=== PATIENT | female | born 1970 | race African-American/Black ===

== ENCOUNTER 2024-09-05 13:51 | Outpatient (CLI) | payer MEDICARE, MEDICAID, SELFPAY ==
--- NOTE | ~2024-09-05 | MM_ITS ---
EXAMINATION: MM screening francesco BI w heladio HISTORY: Screening TECHNIQUE: Craniocaudal and mediolateral oblique 3-D tomosynthesis images were obtained and synthetic 2-D images were generated. CAD analysis was submitted and interpreted. COMPARISON: No prior mammogram is available for comparison at this institution. BREAST PARENCHYMAL COMPOSITION: Not dense: There are scattered areas of fibroglandular density. FINDINGS: There are scattered small low-density masses in the left breast. There is a small intramamm andreas lymph node in the upper outer quadrant of the right breast. There are no suspicious calcification s or architectural distortion. IMPRESSION: 1. Small scattered low-density masses of the left breast. 2. Comparison to previous outside mammograms recommended to assess stability. BI-RADS Category 0: Incomplete: Needs additional imaging evaluation. Reviewed, dictated and finalized at location A.
--- OUTSIDE RECORDS SUMMARY | 2024-09-05 13:57 | XMS_ITS | Clinical Summary ---
Author Organization [facility] Address [address] [place] [address] Care Team Providers Care Marine Electronics Technician Name Role Phone Unavailable Primary Care Provider Unavailabl e Source Comments [facility],non-owned Affiliates and Associated Physician Practices is amultiple site organization consisting of ambulatory clinics and hospital sitesin [place], [place], [place] and [place]. This disclosure is being madepursuant to the Care Everywhere program and may not contain all information available regarding this patient. Last updated 18.[facility] Allergies No known active allergies Medications * Be aware that medications may not be up to date on this document. Alwaysverify current medications with the patient. 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 Gender Identity Not on file Sexual Orientation Not on file Plan of Treatment Health Maintenance Due Date Last Done Comments COLOGUARD (AGES 45-75) - COL ON CA SCREENING 1971 COLON MONITORING 1971 COLONOSCOPY - COLON CA SCREENING 1971 CT COLONOGRAPHY - COLON CA SCREENING 1971 Colorectal Cancer Screening 1971 FIT - COLON CA SCREENING 1971 FLEX SIG - COLON CA SCREENING 1971 LIPID TESTING 1971 MAMMOGRAM 1971 PAP SMEAR 1971 HIV SCREENING 1986 HEPATITIS C SCREENING 04/17/1989 DTAP/TDAP/TD VACCINES (1 - Tdap) 1990 HEPATITIS B VACCINE (1 of 3 - 19+ 3-dose series) 1990 PNEUMOCOCCAL VACCINE 50+ (1 of 1 - PCV) 2021 ZOSTER VACCINE (1 of 2) 2021 COVID-19 VACCINE (3 - 2023-2 5 season) 2023 06/22/2020, 05/25/2020 DEPRESSION SCREENING 04/24/2024 INFLUENZA VACCINE (Season Ended) 2024 01/10/2019, 07/06/2017 HIB VACCINE Aged Out No longer eligi ble based on patient's age to complete this topic HPV VACCINE Aged Out No longer eligi ble based on patient's age to complete this topic MENINGOCOCCAL (Group B) VACCINE SHARED DECISION-MAKING Aged Out No longer eligible based on patient's age to complete this topic MENINGOCOCCAL GROUPS A/C/Y/W VACCINE Aged Out No longer eligible b ased on patient's age to complete this topic
--- OUTSIDE RECORDS SUMMARY | 2024-09-05 13:57 | XMS_ITS | Referral Summary ---
Author Organization [facility] Address [address] [place] [address] Care Team Providers Care Certified Art Therapist Name Role Phone Isidro Garza MD Primary Care Provider + Tyshawn Liang MD Unavailable [phone] Cassi Paredes MD Unavailable Connie Ortega MD Unavailable [phone] Encounters Date Type Department Care Team Description 09/02/2024 Telephone [facility] [address] [place] [address] 12th [place] [address] Mikaela Rosales RN 08/30/2024 Telephone [facility] [address] [place] [address] Medical Office Building [address] [place] [address] Lacie Causey RN 07/15/2024 10:00 AM CDT Office Visit [facility] [address] [place] [address] Isidro Garza MD B12 deficiency (Primary Dx); Well adult exam; Crohn's colitis, other complication (HCC); Essential hypertension; Vitamin D deficiency; H/O abnormal mammogram; Mass of breast, unspecified laterality; Breast pain 07/11/2024 2:40 PM CDT Office Visit [facility] Medicine 12th [place] [address] [place] [address] Demarcus Rodriguez MD Arthropathies (Primary Dx); Crohn's disease of small intestine with other complication (HCC); High risk medications (not anticoagulants) long-term use; Vitamin B12 deficiency 07/03/2024 Documentation [facility] [address] [place] [address] Mikaela Rosales, RN Med Management 07/02/2024 Telephone [facility] [address] [place] [address] [place] [address] Mikaela Rosales RN 06/27/2024 Telephone [facility] [address] [place] [address] [place] [address] Mikaela Rosales RN 06/25/2024 Telephone [facility] [address] [place] [address] [place] [address] Demarcus Rodriguez MD Med Management (Skyrizi clarification) 06/24/2024 Telephone [facility] [address] [place] [address] Medical Office Building [address] [place] [id number] Mikaela Rosales RN 06/18/2024 Telephone [facility] [address] [place] [address] [place] [address] Mikaela Rosales, RN from Last 3 Months Allergies Active Allergy Reactions Criticality Noted Date Comments Doxycycline Wheezing,Nausea & Vomiting Medium Adalimumab Hives Medium 04/13/2023 Metronidazole Vomiting Low Naproxen Nausea & Vomiting Low Tetracycline Nausea & Vomiting Low Medications syringe with needle, safety (Monoject Safety Syringes) 3 mL 25 gauge x 5/8 syringe 1 mL every 30 (thirty) days 10 each 1 12/09/[address] (PROTONIX) 40 mg EC tablet Take 1 tablet (40 mg total) by mouth daily 90 tablet 3 01/21/20 23 Active acyclovir (ZOVIRAZ) 5 % cream Apply topically 5 (five) times a day 5 g 2 05/02/19 24 Active ondansetron (ZOFRAN) 4 mg tablet Take 1 tablet (4 mg total) by mouth every 6 (six) hours as needed for nausea or vomiting 15 tablet 07/02/19 24 Active ofloxacin (OCUFLOX) 0.3 % ophthalmic solution Administer 1 drop into both eyes every 4 (four) hours 07/07/19 24 Active mupirocin (BACTROBAN) 2 % ointment Apply topically 3 (three) times a day 22 g 2 07/17/19 24 Active hydrocortison e 2.5 % ointment Apply topically 2 (two) times a day 30 g 2 07/31/19 24 Active prochlorperaz ine (COMPAZINE) 10 mg tablet Take 1 tablet (10 mg total) by mouth 2 (two) times a day as needed for nausea or vomiting 10 tablet 08/06/19 24 Active amLODIPine (NORVASC) 5 mg tablet Take 1 tablet (5 mg total) by mouth daily 90 tablet 3 10/04/19 24 2024 Active ergocalcifero l (VITAMIN D) 50,000 unit capsule Take 1 capsule (50,000 Units total) by mouth once a week 4 capsule 2 05/07/19 25 2025 Active valsartan (DIOVAN) 160 mg tablet TAKE 2 TABLETS(320 MG) BY MOUTH EVERY MORNING 180 tablet 1 05/17/19 25 Active oxyCODONE (ROXICODONE) 5 mg immediate release tabletIndicat ions:Pain Take 1 tablet (5 mg total) by mouth every 4 (four) hours as needed for pain for up to 15 doses 15 tablet 06/10/19 25 Active Skyrizi 360 mg/2.4 mL (150 mg/mL) wearable injector INJECT THE CONTENTS OF 1 CARTRIDGE SUBCUTANEOUSLY EVERY 8 WEEKS 2.4 mL 2 06/25/19 25 Active Nystop powder APPLY TOPICALLY TO THE AFFECTED AREA TWICE DAILY 60 g 3 07/10/19 25 Active colestipoL (COLESTID) 1 gram tablet Take 1 tablet (1 g total) by mouth 2 (two) times a day 60 tablet 11 07/12/19 25 2025 Active acetaminophen (TYLENOL) 500 mg tablet Take 1 tablet (500 mg total) by mouth every 6 (six) hours as needed for pain 100 tablet 3 07/16/19 25 2025 Active cyanocobalami n (Vitamin B-12) 1,000 mcg/mL injection ADMINISTER 1 ML(1000 MCG) UNDER THE SKIN EVERY 30 DAYS 1 mL 2 08/06/19 25 Active cholecalcifer ol (VITAMIN D-3) 2000 unit tablet TAKE 1 TABLET BY MOUTH DAILY 90 tablet 09/05/19 25 Active cholecalcifer ol (VITAMIN D-3) 2000 unit tablet TAKE 1 TABLET BY MOUTH DAILY 90 tablet 1 03/18/20 24 2024 Discontinued Active Problems Problem Noted Date Diagnosed Date Conjunctivitis 07/07/2023 Assessment & Plan (07/07/2023 12:12 PM CDT): Patient with left eye conjunctivitis, suspected viral and tried Zaditor with no relief. Reports that was crusted over this morning, and fact unilateral could favor bacterial. - Will go ahead and treat with Topical Ciprofloxacin. Continue Zaditor. Severe protein-calorie malnutrition 07/06/2023 Abdominal pain 07/03/2023 Transaminitis 06/26/2023 Assessment & Plan (06/28/2023 12:39 PM MOUNTER): Sudden, acute rise in AST, ALT and Alk phos along with rise in Tbili and Dbili, improving. No evidence of ruby biliary obstruction on CT. MRI/MRCP 06/26 no choledocholithiasis. Given that they are spontaneously improving on their own, GI feels, that possibly could have been related to passed stone/sludge and does not warrant further work up at this time. 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 Continue to treat supportively. - s/p skin biopsy on 07/06/23, patient to follow up with ID as outpatient. Assessment & Plan (06/28/2023 12:32 PM MOUNTER): s/p skin biopsy in May. 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 GI recommended ID consult for further evaluation. ID was consulted and recommended the following labs: -RPR/treponemal AB, bartonella AB, q fever Ab, blood afb cx, all pending at this time Photos of rash were uploaded and ID, Dr. Yancey, spoke with Dermatology, Dr. Lowe, who recommends bx for further evaluation. As patient discharging home today, reached out to Dr. Lowe for outpatient appointment. -PER ID: Tissue requirements - need about a pencil eraser sized amount of tissue for the broad range sequencing in a sterile container (not floating in saline) + additional specimen for cultures. 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 inhibitor (Humira) though an infectious etiology was felt to still be possible; as best I can tell from the available data, no infectious organisms have been identified/isolated Herpes zoster without complication 05/02/2023 Atrophy of vulva 12/05/2022 Overview (12/05/2022): - s/p hyst BSO for serous cystadenoma in 2004, no HRT use - SSE with vaginal atrophy - Rx for estradiol 10 mcg tablet sent to pharmacy - Vulvar hygiene discussed Healthcare maintenance 12/05/2022 Overview (12/05/2022): - Mammogram last 03/2022 normal, due 03/2023 (ordered) - No cervical cancer screening indicated, denies hx of cervical dysplasia or abnormal pap prior to hysterectomy Recurrent major depressive disorder, in remissio n 07/04/2022 Neck pain 06/20/2022 Assessment & Plan (06/20/2022 1:34 PM MOUNTER): - Complained of left neck pain/fullness on 06/20. No appreciated LAD - [place] MSK in etiology. No dyspnea/dysphagia - Recommended hot packs and PRN anelgesics. Feel infection unlikely, but will be getting cipro for GI issues regardless. Substance abuse 06/16/2022 Assessment & Plan (06/20/2022 1:33 PM MOUNTER): -UDS positive for cannabinoids and fentanyl -she admits to MJ use and states received fentanyl by EMS Assessment & Plan (06/16/2022 10:30 PM MOUNTER): -UDS POSITIVE for cannabinoids and fentanyl -she admits to MJ use but did not receive fentanyl in ER as best I can tell -while the N/V and abdominal pain are most likely due to IBD flare, if these symptoms persist despite adequate treatment of Crohn's consideration should be given to ALEJANDRO as an possible etiology Essential hypertension 04/28/2022 Assessment & Plan (01/17/2023 10:40 AM CDT): Holding valsartan while NPO. Bradycardia 04/28/2022 Assessment & Plan (06/26/2023 6:22 PM MOUNTER): -chronic, stable, asymptomatic -telemetry as above Assessment & Plan (06/26/2023 6:41 AM MOUNTER): -chronic, stable, asymptomatic -telemetry as above Chronic left-sided low back pain without sciatic a 10/06/2021 High risk medications (not anticoagulants) long- term use 06/07/2021 Crohn's colitis, other complication 05/01/2020 Overview (05/03/2020): Added automatically from request for surgery [id number] Displaced fracture of body o f left calcaneus with routine healing 09/20/2019 Overview (09/20/2019): Added automatically from request for surgery [id number] Complications of internal or thopedic device, implant, and graft 09/05/2019 H/O noncompliance with medic al treatment, presenting hazards to health 07/31/2019 Assessment & Plan (07/31/2019 6:35 PM CDT): The patient has Crohn's disease is not being treated at this time. She is poorly compliant with therapy recommendations and follow-up office visits Patient was again counseled about the risks of poor medical compliance including worsening of the inflammatory bowel disease and possible development of fistulizing disease, abscess, bowel obstruction and malignancy. Periumbilical hernia 05/01/2019 Assessment & Plan (05/01/2019 12:15 PM MOUNTER): Mild. Possibly due to incisional hernia. Plan Obtain CT abdomen and pelvis. Patient was advised to follow up with the surgeon. Closed displaced fracture of body of left calcan eus 07/17/2018 Assessment & Plan (10/15/2018 9:57 AM CDT): The patient has sufficient healing to be out of her cast boot. She was provided with a lace-up ankle support is a counter measure for swelling. She may find a 10 issues more accommodating. Since she works on her feet for 12 hours she is unlikely be able to get back to work for least two more weeks. Would like to reassess her ultimate recovery after therapy in 4-6 weeks. Assessment & Plan (07/24/2018 2:02 PM CDT): Patient has a fracture transversely across the body of the calcaneus with a T- shaped fracture line extending through the posterior facet that is relatively nondisplaced. At the position could be maintained this might be able be treated nonsurgically. Will review the CT with a foot ankle specialist Dr. Weltmer. The patient is continue with ice packs elevation toe stretching exercises and avoid prolonged standing or walking. She should not be bearing weight on the leg. She is to be off of work likely 2-3 months Assessment & Plan (07/17/2018 2:40 PM CDT): Patient has fracture of the body of the calcaneus and may extend to the posterior facet. Would recommend a CT to help better understand the bony anatomy. Patient should remain nonweightbearing with the foot elevated with ice packs into the acute pain and swelling subsides. She has been encouraged to take an aspirin daily. She will be unable to perform her duties as a [employer] for least eight weeks. Breast mass 11/08/2017 Crohn's disease of small int estine with intestinal obstruction 10/30/2017 Overview (04/08/2024): Year of diagnosis: 1999. Year symptoms began: 1999. Phenotype: Penetrating (B3) with perianal disease. Distribution: ileocolonic (L3) without upper GI disease (L4). Extraintestinal manifestations: tra Complications: Past colovaginal fistula, SBO, B12 deficiency, multiple ER visits with abdominal pain and SBO ([facility]) Prior treatments: Mesalamine, PDN, BIO naieve, Aza Stopped due to intolerence, started stelara 10/08/20,every 8 weeks, level prior to first injection was 4.9 (12/02/20), 5.4 (04/25/21), escalated to [id number] in mid Apr 2021, level 8.1 on 01/20/22, Humira 40mg q14 days 04/2022, 01/18/23 level 7.6 with 13.6 Ab Current treatment: started skyrizi 02/05/24 Fecal debra 12/2021 <50.0 Prior surgeries: Ileal colectomy. 01/31. ICR ex lap 08/[address] Kamara Diagnosis: Ileum and colon with anastomosis, secondary ileocolic resection - Segment of ileum with a stricture and and chronic active ileitis with associated ulceration, pyloric gland metaplasia, muscularis mucosae and propria hypertrophy, and transmural inflammation with lymphoid aggregates, consistent with clinical history of Crohn's disease - Intact anastomosis to a segment of bowel with no histopathologic abnormality - Surgical resection margins with no histopathologic abnormality - No evidence of dysplasia or malignancy Endoscopies: Colon 04/2020 Patent end-to-side ileo-colonic anastomosis, characterized by inflammation. - The examination was otherwise normal on direct and retroflexion views. DIAGNOSIS: Ileocolonic anastomosis, biopsy: - Ulcer, acute and chronic inflammation, and reactive changes Colon 10/2017 Patent end-to-side ileo-colonic anastomosis, characterized by inflammation. Biopsied. - Congested, erythematous, furrowed, inflamed and ulcerated mucosa in the terminal ileum. Biopsied. - The examination was otherwise normal on direct and retroflexion views. - Ileal Crohn's disease. Biopsied. Diagnosis: A. Terminal ileum, biopsy: - Benign small bowel mucosa with acute inflammation and focal cryptitis. B. Ileocolonic anastomosis, biopsy: - Benign small bowel and colonic mucosa with acute inflammation and focal cryptitis. Specimen(s) Received: A: Terminal ileum B: Ileocolonic anastamosis Microscopic Description: A. Sections show superficial biopsies of small bowel mucosa which shows an underlying stroma which is mildly edematous with mixed inflammation. The overlying epithelium is significant for acute inflammation. A few of the underlying crypts also show some focal cryptitis. There is no evidence of dysplasia or malignancy seen. B. Sections show fragments of small bowel and colonic mucosa which show acute inflammation within the lamina propria as well as the overlying surface epithelium. A few of the underlying crypts show cryptitis. There is no evidence of dysplasia or malignancy. Imaging: CTE 03/2023 IMPRESSION: 1. Slight decrease in distention of small bowel proximal to an inflamed segment of long segment stricture of the neoterminal ileum. No evidence for abscess or penetrating disease. 2. Subtle findings at the junction of the descending colon and sigmoid colon which may represent an area of mild inflammation. There is no evidence for a stricture or penetrating disease at this level. Note, this area nondistended on the prior study but this finding appears new. CTE 08/2022 IMPRESSION: 1. Unchanged chronic thickening of the neoterminal ileum with likely component of stenosis as evidenced by upstream dilation, decreased from prior examination. No abscess or fistulization. 2. Ventral hernia containing nonobstructed loop of transverse colon. CT 05/2022 IMPRESSION: 1. Grossly unchanged ileitis involving the neoterminal ileum with persistent more proximal dilated fluid-filled loops of small bowel which have not changed since prior examination. These findings may represent at least partial small bowel obstruction. 2. Paraumbilical hernia containing a small portion of nondilated loop of transverse colon. CTE 12/24/21 IMPRESSION: 1. Ileitis involving the neoterminal ileum with a long stricture resulting in obstructive dilatation and air-fluid levels, likely secondary to slow transit. This appears somewhat similar to the reference examination. 2. Mild wall thickening and enhancement of the midportion of the descending colon, could indicate active disease. 3. Changes of ventral hernia repair with persistent small hernia containing a small portion of nonobstructed transverse colon. MRCP 06/2021 IMPRESSION: 1. Mild central intrahepatic ductal dilation with tapering at the level of the ampulla, likely representing reservoir effect after cholecystectomy. No suspicious biliary abnormality. 2. Normal pancreas. 3. Right adrenal adenoma. CT 04/24/21 IMPRESSION: 1. Redemonstrated sami-terminal ileitis with a stricture resulting in upstream dilatation and air-fluid levels in the distal small bowel, likely secondary to slow transit. 2. Moderate biliary ductal dilatation with prominent pancreatic duct. Indeterminate right adrenal gland nodule. Recommend further evaluation with MRCP if clinically indicated. 3. Changes of ventral hernia repair with persistent small hernia containing a small portion of the nonobstructed transverse colon. CT 02/2021 IMPRESSION: 1. Abnormal thickening of the distal most small bowel moderate in severity consistent with known Crohn's disease. There is some small bowel distention which may indicate a partial small bowel obstruction. No high-grade obstruction seen. 2. Abnormally dilated biliary ductal system and pancreatic duct which has increased from prior study. Consider ERCP or MRCP. Clinical correlation recommended. Abd usg limited 02/2021 IMPRESSION: 1. Mild dilation of the extrahepatic bile ducts is likely related to reservoir phenomenon in the setting of prior cholecystectomy and non-elevated alkaline phosphatase and bilirubin, although the region of the ampulla is not well visualized by sonography. Main pancreatic duct measures at the upper limits of normal. Further evaluation can be performed with ERCP or MRCP in the appropriate clinical setting. Recent SBO mobap 04/2020. TI disease noted in fall. CTE 07/2020 IMPRESSION: 1. Approximate 10 cm segment of active inflammation of the neoterminal ileum, improved in appearance to recent April 2020 and January 2020 imaging. No evidence of penetrating disease or stricture/fibrostenosing disease. IBD HEALTH MAINTENANCE HBV vaccination status: Immune Covid vaccine: Moderna x3 Assessment & Plan (07/11/2024 3:11 PM CDT): CD on skyrizi and having some increased bm's. May be cholorrheic. ? IBD arthropathy. Will trial colestipol and have her see Rheum and see if they have some better way of handling the arthralgias. Will f/u in 4 mo. Go from there. Assessment & Plan (04/11/2024 4:03 PM MOUNTER): CD doing well s/p resection. Will continue same and f/u in 3 mo. Recommend flu and covid immunization. Assessment & Plan (11/23/2023 2:33 PM CDT): CD doing well s/p IC resection, Mutch. Will begin skyrizi and f/u in 3-4 mo. Truly looks good. Assessment & Plan (07/27/2023 1:29 PM CDT): CD tolerating the clear liquids but needs to proceed with surgery. Wishes to avoid stoma. I told her no guarantee's but I believe she will tet anastomosis. Even if she had stoma it would be termporary and we would get her through it. She knows I have had a stoma for 54 years. Seeing Galdino Kamara later this afternoon. Assessment & Plan (06/28/2023 12:28 PM MOUNTER): Patient with history of re-occuring Crohn's exacerbations and hospitalizations. Patient had several BMs yesterday and is passing gas. Has been tolerating clear liquids. GI consulted, recommended MRE, but patient declines as she would like to advance her diet and states that she does not tolerate the contrast well. Patient now more agreeable to surgery, and will have OP follow up with Dr. Kamara to discuss further. GI recommends resuming home entocort 9 mg daily and OP follow up with Dr. Rodriguez. Assessment & Plan (06/26/2023 5:48 AM MOUNTER): -GI consult in AM -hold steroids, Abx for now Assessment & Plan (06/08/2023 3:23 PM MOUNTER): SBO that I suspect is fibrosed. Will get MRE with cine per Be Mcguire. Granulomatous skin condition that path says is not cutaneous CD that should be an atypical infection. Need ID's help on this as we need to treat her CD with skyrizi. As such will message ID who is to see her on July 03. I suspect depending on the MRE that we need surgery. Assessment & Plan (04/13/2023 4:36 PM MOUNTER): AT this point she and I do not believe the humira is working as such recommend rubén. She is agreeable. Will go from there and f/up in 8 weeks. ? Whether she is going to avoid surgery. I am not sure. Assessment & Plan (12/08/2022 4:30 PM CDT): CD tolerating the humira. Will continue same and /fup in 4 mo. ? Timing of scope vs imaging. Assessment & Plan (09/01/2022 1:20 PM CDT): CD seemingly stable to improved based on the CTE findings. Will continue the humira at current dosing and will f/u in the office in 3 mo. She will decrease the pdn from 10 to 5 x 2 weeks and then off. Assessment & Plan (07/07/2022 4:36 PM CDT): CD with recent sbo. Question at this time is whether this is surgical or medical. I suspect she has a fibrotic stricture with overlying inflammation. How much remains to be seen. Will check a f/up CTE and see what we are left with in 2 weeks. She will f/up after this and at that point decide whether this is surgical or not. If she still has dilated small bowel going into this segment then I suspect she has a significant enough fibrosis that surgery is the option. Will go from there. Will also rx fluconazole for boston vaginitis. Assessment & Plan (05/19/2022 3:38 PM MOUNTER): CD refractory. Needs to start humira. Says she will do so today. Will f/up in 3 mo. We looked together at the ventral hernia on her CT scan ( I illustrated it on the screen for her. Will go from there. Assessment & Plan (03/31/2022 1:10 PM MOUNTER): At this point she needs: 1. Liver panel 2. MRCP 3. CTE 4 go for adalimunab ? CBD stone. Noted to have adequate stelara yet progressive sx's. Will get baseline CTE and go with humira. Assessment & Plan (08/19/2020 10:19 AM CDT): At this point she needs to stop smoking. Would begin with stelara with back of pf humira with possible thiopruine. Check TPMT gentoype and proceed accordingly. F/up in 3 months. Assessment & Plan (07/22/2020 10:15 AM CDT): Patient with IC CD and recent SBO admitted at [facility] for same. Will get CTE, labs, FC and f/up. She will likely need Stelara as her med with back up plan of humira but would want to get the new gene checked if we go there relative to the risk of developing ab's to the thiopurines. She must stop smoking. Assessment & Plan (11/22/2017 11:44 AM CDT): Uncontrolled. She has a previous history of ileocolonic Crohn's disease with entero-vesical fistula. The patient is very noncompliant. She had refused taking azathioprine in the past. She also refuses therapy with Humira or Remicade out of concern for possible complications in future. The most recent colonoscopy revealed disease in the terminal ileum and ileocecal junction. I informed the patient of the potential complications of untreated Crohn's disease and touched on possible abscesses, fistula and even malignant transformation. I reviewed the range of possible medications that can be used. She does not want to be treated with prednisone. She however agrees to be treated with sulfasalazine. Prescription for sulfasalazine 1 g b.i.d. was authorized. Edema of lower extremity 02/19/2016 Bacterial vaginosis 01/22/2016 Mass of uterine adnexa 11/06/2015 Hidradenitis 05/21/2014 Breast pain 05/16/2014 Tobacco dependence syndrome 09/07/2013 Overview (07/28/2016): Tobacco abuse Assessment & Plan (04/26/2021 10:48 AM MOUNTER): Active smoker, may be contributing to IBD. Nicotine patch and will recommend cessation. Assessment & Plan (04/25/2021 9:38 AM MOUNTER): Active smoker, may be contributing to IBD. Nicotine patch and will recommend cessation. Family history of malignant neoplasm of breast in first degree relative 09/07/2013 Overview (07/28/2016): Family history of breast cancer in mother Vitamin D deficiency 09/07/2013 Overview (07/29/2016): Vitamin D deficiency Surgical follow-up care 05/28/2013 Eczema of hand 05/21/2013 Alopecia areata 05/21/2013 Blood glucose abnormal 04/12/2013 Ovarian retention cyst 01/04/2013 Abnormal mammogram 10/17/2011 Abdominal hernia 08/23/2010 B12 deficiency 08/19/2010 Current smoker 08/19/2010 Vitamin D deficiency disease 08/19/2010 Resolved Problems Problem Noted Date Diagnosed Date Resolved Date Crohn's disease with complication 09/01/2023 04/03/2024 High anion gap metabolic acidosis 07/03/2023 07/04/2023 Assessment & Plan (07/03/2023 4:43 PM CDT): Patient presenting with HAGMA, LA normal. Likely secondary to starvation ketosis in setting of stricture, and inability to keep much down PO. No history of diabetes, and no other clear precipitant to suggest other source or infection. - Will start patient on D5LR at this time, start on CLD. - Follow up BMP in the morning. HTN (hypertension) 07/03/2023 Assessment & Plan (07/03/2023 4:41 PM CDT): Patient with history of hypertension on Valsartan, will hold medication at this time as patient normotensive. Hypokalemia 06/26/2023 07/15/2024 Assessment & Plan (06/28/2023 12:35 PM MOUNTER): K 2.4 in ED. Likely 2/2 uGI losses and inability to replete enterally. Resolved. Assessment & Plan (06/26/2023 5:46 AM MOUNTER): -K 2.4 in ED -likely 2/2 uGI losses and inability to replete enterally -she only received 40 mEq IV KCL in ED, which would not be expected to get her above 3.0 mmol/L -she did receive 2g IV MgSO4 for mag level 1.4 -after repeat BMP after MN, K up to 2.7 -80 mEq IV KCL ordered -telemetry monitoring as hypokalemia is associated with cardiac arrhythmias Small bowel obstruction 06/25/202303/24 Assessment & Plan (06/28/2023 12:35 PM MOUNTER): This is her 4th presentation to our facility with symptomatic SBO since midMarch. During each previous presentation, cross-sectional imaging as revealed a stricture at the distal ileum; the location is, essentially, unchanged/fixed. This likely represents a fibrotic stricture rather than an inflammatory one. Patient refused MRE inpatient for further evaluation. Patient had several BMs and diet was advanced. Electrolytes repleted as needed. Low fiber diet encouraged. Patient will follow up OP with Dr. Kamara to discuss surgery. Assessment & Plan (06/26/2023 6:18 AM MOUNTER): -this is her FOURTH presentation to our facility with symptomatic SBO since mid -during each previous presentation, cross-sectional imaging as revealed a stricture at the distal ileum; the location is, essentially, unchanged/fixed -this likely represents a fibrotic stricture rather than an inflammatory one; as such, steroids and immuno-modulators are unlikely to have any effect -NPO x sips/ice chips -mIVFs -PRN analgesics and anti-emetics -will consult GI in AM -MRI/MRE in AM -as she has basically failed multiple conservative management attempts over the past 4 months and given the static nature of the stricture, I suspect she will need surgical resection during this hospitalization Small bowel obstruction 01/16/202303/24 Assessment & Plan (01/19/2023 10:42 AM CDT): History of Crohns with prior SBO with known stricture at terminal ileum. Presented 01/16 with abd pain, N/V. Had recently received Humira injection with improvement in symptoms overall, had been on sterlara prior to this with frequent hospitalizations. CT shows small bowel obstruction secondary to a long segment stricture and inflammation at the neoterminal ileum. - Patient symptoms overall improved on 01/18, and having multiple BMs. - Low fat/fiber diet, ADAT. Tolerating. - Continue to follow up on symptoms. - s/p IVF. - CTM electrolytes, daily BMP. - Will plan to discharge patient today. SBO (small bowel obstruction) 01/16/2023 04/03/2024 Assessment & Plan (07/07/2023 11:58 AM CDT): Patient presenting with ongoing abdominal pain with MRE indicative of small bowel stricture that has been known. Patient reports that she was tolerating PO diet when she left hospital, but at home has been having N/V with multiple episodes of emesis (no blood). Has been having BM and passing gas. She has been resistant to NG tube as well for her symptoms. She is going to follow up with Dr Kamara in July regarding potential surgical options. - CRS has evaluated, no acute surgical intervention. Plan to follow along. Will follow patient TPN as outpatient. - Patient tolerating CLD. - PRN Zofran. Ingrown nail 09/08/2022 07/15/2024 Exacerbation of Crohn's disease 06/16/2022 04/03/2024 Assessment & Plan (07/07/2023 11:57 AM CDT): Patient with history of reoccuring Crohn's exacerbations and hospitalizations. Follows with Dr Acosta team. She has been having 4-5 BM a day without blood. Has been having N/V likely secondary to stricture. Patient underwent MRE in ED which did show persistent findings of long segment distal and terminal ileal stricture with moderate upstream dilation likely compatible with SBO. Notable for chronic inflammation. - GI consulted, recommending to not advance patient past CLD in order to keep patient out of the hospital, considering TPN as bridge to surgery while considering further surgical options. - Patient denying wanting TPN on discharge, would like it to be discontinued. Have discussed concerns/risks of increasing PO diet including SBO with known stricture. GI recommending Full liquid diet for her on discharge to meet caloric needs, heading and priming tool setter has met with patient. - Will follow up as outpatient after surgery for any further medical management. - The overall feeling is much of patients symptoms related to stricture that would not respond to steroids, and patient will likely need surgery for definitive management. Has been resistant because of not wanting ostomy pouch. Assessment & Plan (06/20/2022 1:33 PM MOUNTER): -presenting with abd pain, diarrhea, N/V -inflammatory markers not elevated but CT suggestive of active colitis in anatomic region corresponding to patient's symptoms -she endorses compliance with Humira -GI consulted. Appreciate recommendations. Will defer scope inpatient. -Started entocort on 06/18 with symptom improvement. Will continue on dc until follow-up. -Was started on metronidazole. Will transition to 1 week course ciprofloxacin on dc per GI. - PRN analgesics/antiemetics; avoid NSAIDs Assessment & Plan (06/16/2022 10:22 PM MOUNTER): -presenting with abd pain, diarrhea, N/V -inflammatory markers not elevated but CT suggestive of active colitis in anatomic region corresponding to patient's symptoms -she endorses compliance with Humira -will send stool for Cdiff, O&P, fecal calprotectin -IVFs overnight -NPO p MN just in case -GI consult in AM -PRN analgesics/antiemetics; avoid NSAIDs Ileitis 04/25/2021 04/03/2024 Small bowel stricture 04/25/20212023 Assessment & Plan (04/26/2021 10:47 AM MOUNTER): Patient has likely stricture seen on CT scan today without overt obstruction. D/w GI fellow, no current plans for endoscopy, advance diet as tolerated. Assessment & Plan (04/25/2021 9:39 AM MOUNTER): Patient has likely stricture seen on CT scan today without overt obstruction. D/w GI fellow, no current plans for endoscopy, advance diet as tolerated. Exacerbation of Crohn's dise ase with complication 04/25/2021 04/03/2024 Assessment & Plan (04/26/2021 10:47 AM MOUNTER): Patient presents with abdominal pain, nausea, and vomiting. H/o crohn's maintained on stellara, last infused Apr 04. CT scan reveals continued neoterminal ileitis and stricture likely due to active Crohn's disease. We have consulted Gastroenterology. Will provide morphine p.r.n. pain and Zofran p.r.n. nausea. Patient doing better this AM without specific Crohn's treatment, ie steroids. D/w GI fellow regarding abdominal pain. Suspect acute pain was due to non-compliance with low residue diet in the setting of chronic strictures, as pain started shortly after eating raisin bran. Doing well today, abd pain resolved, tolerating low residue diet. Will consult heading and priming tool setter for diet teaching and discharge home with outpatient GI f/u. Assessment & Plan (04/25/2021 9:37 AM MOUNTER): Patient presents with abdominal pain, nausea, and vomiting. H/o crohn's maintained on stellara, last infused Apr 04. CT scan reveals continued neoterminal ileitis and stricture likely due to active Crohn's disease. We have consulted Gastroenterology. Will provide morphine p.r.n. pain and Zofran p.r.n. nausea. Patient doing better this AM without specific Crohn's treatment, ie steroids. D/w GI fellow. Advance diet as tolerated, discharge once tolerating low residue diet. Leukocytosis 04/25/2021 07/15/2024 Assessment & Plan (04/26/2021 10:48 AM MOUNTER): WBC 15, likely reactive 2/2 Crohn's. Normalized without intervention. No symptoms of infection. Assessment & Plan (04/25/2021 9:39 AM MOUNTER): WBC 15, likely reactive 2/2 Crohn's. Normalized without intervention. 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 She had refused taking azathioprine in the past. Last colonoscopy was in 2013 that showed ileitis. Plan Colonoscopy recommended. She was counseled that the best medication for Crohn's disease are antiTNF agents. She is receptive to the idea of being treated. She was counseled about the possible side effects including malignancies and unmasking of tuberculosis or fungal infections. The patient verbalized understanding. Check PPD, CXR. Check CBC, CMP and fecal calprotectin. Time for counseling 30mins. Total time spent 55mins. Abdominal pain 11/09/2011 03/19/2021 Crohn's disease 08/21/2010 04/03/2024 Overview (08/03/2017): Description: Crohn's Disease Assessment & Plan (01/19/2023 10:41 AM CDT): [facility] SBO at location of stricture at terminal ileum with associated inflammation. Patient does have history of ileal stricture. - GI consult, appreciate recommendations. Recommended following up with Dr. Rodriguez on discharge. - IV solumedrol 60 mg daily. -- > Will d/c on Enterocort 9 mg x 2 weeks on discharge. - Pantoprazole daily. Will refill on discharge. - Flagyl 250 mg TID. --> Will discharge on PO Flagyl x 2 weeks on discharge. - Discussion of escalation of outpatient Humira. Patient to follow up with her GI doctor on outpatient basis. Assessment & Plan (07/31/2019 6:36 PM CDT): Uncontrolled. Patient is poorly compliant. The only reason she called into the office was because she is concerned about her risk for COVID-19 virus since she knows that she is immunocompromised on the basis of Crohn's disease. She apparently had received prescription for antibiotic t o prevent COVID-19 . She denies exposure or feeling fever or having cough. I advised the patient that she should adhere to social distancing and washer hands as often as possible. Assessment & Plan (05/01/2019 12:17 PM MOUNTER): Uncontrolled. The patient is poorly compliant. She has not followed up for treatment since the most recent colonoscopy in October 2017. At that time she was found to have terminal ileum disease. She has been taking probiotic. Has symptoms appear mild to moderately severe since she has 4 loose bowel movements daily that are non-bloody. Plan Will repeat colonoscopy to assess current status of the disease. The patient was counseled about the importance of compliance with office visits and medical therapy in the management of Crohn's disease. Immunizations Immunization Administration Dates Next Due Hep A / Hep B 10/26/2010 Hep A, Adult 03/25/2020,06/23/2017 Influenza, Quadrivalent, Gabrielle l Culture-based MDCK, Antibiotic Free, Intramuscular 02/05/2021,02/07/2018 Influenza, Quadrivalent, Gabrielle l Culture-based MDCK, Preservative Free, Antibiotic Free, Intramuscular 01/23/2020,01/10/2019 Influenza, Quadrivalent, Spl it, Preservative Free, Intramuscular 07/06/2017 Influenza, Split 02/03/2011 Influenza, Trivalent, Preser vative Free, Intramuscular 02/03/2012,04/02/2010 Influenza, Unspecified 01/22/2023,02/07/2016 MMR 04/09/1997 Moderna SARS-CoV-2 Monovalen t Vaccination (12+ YRS) 06/22/2020,05/25/2020 PPD TEST 01/28/2014 Pneumococcal Polysaccharide PPV23 2019,04/26/2017,01/22/2016,01/12 Tdap 01/12/2009 Social History Tobacco Use Types Packs/Day Years Used Date Smoking Tobacco: Former Cigarettes 0.5 30 1 05/22/1991 - 03/22/2022 Passive Smoke Exposure: Past Smokeless Tobacco: Never Tobacco Cessation:Counseling Given: Not Answered Comments:Smoking History Packs/day: 20 Cigarettes Alcohol Use Standard Drinks/Week Comments Yes 0 (1 standard drink = 0.6 oz pur e alcohol) social [email or web address] Utilities Answer Date Recorded In the past 12 months has e [employer], gas, oil, or water company threatened to shut off services in your home? No 09/04/2023 AUDIT-C Answer Date Recorded Q1: How often do you have a drink containing alcohol? Never 08/18/2023 Q2: How many drinks containi ng alcohol do you have on a typical day when you are drinking? Patient does not drink Q3: How often do you have si x or more drinks on one occasion? Never 08/18/2023 [id number]|2024-09-05 13:57:00|2024-09-05 13:57:00|XMS_ITS|BKG DAEMON|External Medical Summaries|[id number]|" Clinical Summary Created on: September 05, 2024 Ambreen Carranza : 1970 Sex: Female Author Organization [facility] Address [address] [place] [address] Care Team Providers Care Certified Art Therapist Name Role Phone Isidro Garza MD Primary Care Provider + Tyshawn Liang MD Unavailable [phone] Cassi Paredes MD Unavailable [phone] Connie Ortega MD Unavailable [phone] Allergies Active Allergy Reactions Criticality Noted Date Comments Doxycycline Wheezing,Nausea & Vomiting Medium Adalimumab Hives Medium 04/13/2023 Metronidazole Vomiting Low Naproxen Nausea & Vomiting Low Tetracycline Nausea & Vomiting Low Medications syringe with needle, safety (Monoject Safety Syringes) 3 mL 25 gauge x 5/8 syringe 1 mL every 30 (thirty) days 10 each 1 12/09/[address] (PROTONIX) 40 mg EC tablet Take 1 tablet (40 mg total) by mouth daily 90 tablet 3 01/21/20 23 Active acyclovir (ZOVIRAZ) 5 % cream Apply topically 5 (five) times a day 5 g 2 05/02/19 24 Active ondansetron (ZOFRAN) 4 mg tablet Take 1 tablet (4 mg total) by mouth every 6 (six) hours as needed for nausea or vomiting 15 tablet 07/02/19 24 Active ofloxacin (OCUFLOX) 0.3 % ophthalmic solution Administer 1 drop into both eyes every 4 (four) hours 07/07/19 24 Active mupirocin (BACTROBAN) 2 % ointment Apply topically 3 (three) times a day 22 g 2 07/17/19 24 Active hydrocortison e 2.5 % ointment Apply topically 2 (two) times a day 30 g 2 07/31/19 24 Active prochlorperaz ine (COMPAZINE) 10 mg tablet Take 1 tablet (10 mg total) by mouth 2 (two) times a day as needed for nausea or vomiting 10 tablet 08/06/19 24 Active amLODIPine (NORVASC) 5 mg tablet Take 1 tablet (5 mg total) by mouth daily 90 tablet 3 10/04/19 24 2024 Active ergocalcifero l (VITAMIN D) 50,000 unit capsule Take 1 capsule (50,000 Units total) by mouth once a week 4 capsule 2 05/07/19 25 2025 Active valsartan (DIOVAN) 160 mg tablet TAKE 2 TABLETS(320 MG) BY MOUTH EVERY MORNING 180 tablet 1 05/17/19 25 Active oxyCODONE (ROXICODONE) 5 mg immediate release tabletIndicat ions:Pain Take 1 tablet (5 mg total) by mouth every 4 (four) hours as needed for pain for up to 15 doses 15 tablet 06/10/19 25 Active Skyrizi 360 mg/2.4 mL (150 mg/mL) wearable injector INJECT THE CONTENTS OF 1 CARTRIDGE SUBCUTANEOUSLY EVERY 8 WEEKS 2.4 mL 2 06/25/19 25 Active Nystop powder APPLY TOPICALLY TO THE AFFECTED AREA TWICE DAILY 60 g 3 07/10/19 25 Active colestipoL (COLESTID) 1 gram tablet Take 1 tablet (1 g total) by mouth 2 (two) times a day 60 tablet 11 07/12/19 25 2025 Active acetaminophen (TYLENOL) 500 mg tablet Take 1 tablet (500 mg total) by mouth every 6 (six) hours as needed for pain 100 tablet 3 07/16/19 25 2025 Active cyanocobalami n (Vitamin B-12) 1,000 mcg/mL injection ADMINISTER 1 ML(1000 MCG) UNDER THE SKIN EVERY 30 DAYS 1 mL 2 08/06/19 25 Active cholecalcifer ol (VITAMIN D-3) 2000 unit tablet TAKE 1 TABLET BY MOUTH DAILY 90 tablet 09/05/19 25 Active cholecalcifer ol (VITAMIN D-3) 2000 unit tablet TAKE 1 TABLET BY MOUTH DAILY 90 tablet 1 03/18/20 24 2024 Discontinued Active Problems Problem Noted Date Diagnosed Date Conjunctivitis 07/07/2023 Assessment & Plan (07/07/2023 12:12 PM CDT): Patient with left eye conjunctivitis, suspected viral and tried Zaditor with no relief. Reports that was crusted over this morning, and fact unilateral could favor bacterial. - Will go ahead and treat with Topical Ciprofloxacin. Continue Zaditor. Severe protein-calorie malnutrition 07/06/2023 Abdominal pain 07/03/2023 Transaminitis 06/26/2023 Assessment & Plan (06/28/2023 12:39 PM MOUNTER): Sudden, acute rise in AST, ALT and Alk phos along with rise in Tbili and Dbili, improving. No evidence of ruby biliary obstruction on CT. MRI/MRCP 06/26 no choledocholithiasis. Given that they are spontaneously improving on their own, GI feels, that possibly could have been related to passed stone/sludge and does not warrant further work up at this time. 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 Continue to treat supportively. - s/p skin biopsy on 07/06/23, patient to follow up with ID as outpatient. Assessment & Plan (06/28/2023 12:32 PM MOUNTER): s/p skin biopsy in May. 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 GI recommended ID consult for further evaluation. ID was consulted and recommended the following labs: -RPR/treponemal AB, bartonella AB, q fever Ab, blood afb cx, all pending at this time Photos of rash were uploaded and ID, Dr. Yancey, spoke with Dermatology, Dr. Lowe, who recommends bx for further evaluation. As patient discharging home today, reached out to Dr. Lowe for outpatient appointment. -PER ID: Tissue requirements - need about a pencil eraser sized amount of tissue for the broad range sequencing in a sterile container (not floating in saline) + additional specimen for cultures. 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-a inhibitor (Humira) though an infectious etiology was felt to still be possible; as best I can tell from the available data, no infectious organisms have been identified/isolated Herpes zoster without complication 05/02/2023 Atrophy of vulva 12/05/2022 Overview (12/05/2022): - s/p hyst BSO for serous cystadenoma in 2004, no HRT use - SSE with vaginal atrophy - Rx for estradiol 10 mcg tablet sent to pharmacy - Vulvar hygiene discussed Healthcare maintenance 12/05/2022 Overview (12/05/2022): - Mammogram last 03/2022 normal, due 03/2023 (ordered) - No cervical cancer screening indicated, denies hx of cervical dysplasia or abnormal pap prior to hysterectomy Recurrent major depressive disorder, in remissio n 07/04/2022 Neck pain 06/20/2022 Assessment & Plan (06/20/2022 1:34 PM MOUNTER): - Complained of left neck pain/fullness on 06/20. No appreciated LAD - [place] MSK in etiology. No dyspnea/dysphagia - Recommended hot packs and PRN anelgesics. Feel infection unlikely, but will be getting cipro for GI issues regardless. Substance abuse 06/16/2022 Assessment & Plan (06/20/2022 1:33 PM MOUNTER): -UDS positive for cannabinoids and fentanyl -she admits to MJ use and states received fentanyl by EMS Assessment & Plan (06/16/2022 10:30 PM MOUNTER): -UDS POSITIVE for cannabinoids and fentanyl -she admits to MJ use but did not receive fentanyl in ER as best I can tell -while the N/V and abdominal pain are most likely due to IBD flare, if these symptoms persist despite adequate treatment of Crohn's consideration should be given to ALEJANDRO as an possible etiology Essential hypertension 04/28/2022 Assessment & Plan (01/17/2023 10:40 AM CDT): Holding valsartan while NPO. Bradycardia 04/28/2022 Assessment & Plan (06/26/2023 6:22 PM MOUNTER): -chronic, stable, asymptomatic -telemetry as above Assessment & Plan (06/26/2023 6:41 AM MOUNTER): -chronic, stable, asymptomatic -telemetry as above Chronic left-sided low back pain without sciatic a 10/06/2021 High risk medications (not anticoagulants) long- term use 06/07/2021 Crohn's colitis, other complication 05/01/2020 Overview (05/03/2020): Added automatically from request for surgery [id number] Displaced fracture of body o f left calcaneus with routine healing 09/20/2019 Overview (09/20/2019): Added automatically from request for surgery [id number] Complications of internal or thopedic device, implant, and graft 09/05/2019 H/O noncompliance with medic al treatment, presenting hazards to health 07/31/2019 Assessment & Plan (07/31/2019 6:35 PM CDT): The patient has Crohn's disease is not being treated at this time. She is poorly compliant with therapy recommendations and follow-up office visits Patient was again counseled about the risks of poor medical compliance including worsening of the inflammatory bowel disease and possible development of fistulizing disease, abscess, bowel obstruction and malignancy. Periumbilical hernia 05/01/2019 Assessment & Plan (05/01/2019 12:15 PM MOUNTER): Mild. Possibly due to incisional hernia. Plan Obtain CT abdomen and pelvis. Patient was advised to follow up with the surgeon. Closed displaced fracture of body of left calcan eus 07/17/2018 Assessment & Plan (10/15/2018 9:57 AM CDT): The patient has sufficient healing to be out of her cast boot. She was provided with a lace-up ankle support is a counter measure for swelling. She may find a 10 issues more accommodating. Since she works on her feet for 12 hours she is unlikely be able to get back to work for least two more weeks. Would like to reassess her ultimate recovery after therapy in 4-6 weeks. Assessment & Plan (07/24/2018 2:02 PM CDT): Patient has a fracture transversely across the body of the calcaneus with a T- shaped fracture line extending through the posterior facet that is relatively nondisplaced. At the position could be maintained this might be able be treated nonsurgically. Will review the CT with a foot ankle specialist Dr. Galindo. The patient is continue with ice packs elevation toe stretching exercises and avoid prolonged standing or walking. She should not be bearing weight on the leg. She is to be off of work likely 2-3 months Assessment & Plan (07/17/2018 2:40 PM CDT): Patient has fracture of the body of the calcaneus and may extend to the posterior facet. Would recommend a CT to help better understand the bony anatomy. Patient should remain nonweightbearing with the foot elevated with ice packs into the acute pain and swelling subsides. She has been encouraged to take an aspirin daily. She will be unable to perform her duties as a [employer] for least eight weeks. Breast mass 11/08/2017 Crohn's disease of small int estine with intestinal obstruction 10/30/2017 Overview (04/08/2024): Year of diagnosis: 1999. Year symptoms began: 1999. Phenotype: Penetrating (B3) with perianal disease. Distribution: ileocolonic (L3) without upper GI disease (L4). Extraintestinal manifestations: tra Complications: Past colovaginal fistula, SBO, B12 deficiency, multiple ER visits with abdominal pain and SBO ([facility]) Prior treatments: Mesalamine, PDN, BIO naieve, Aza Stopped due to intolerence, started stelara 10/08/20,every 8 weeks, level prior to first injection was 4.9 (12/02/20), 5.4 (04/25/21), escalated to [id number] in mid Apr 2021, level 8.1 on 01/20/22, Humira 40mg q14 days 04/2022, 01/18/23 level 7.6 with 13.6 Ab Current treatment: started skyrizi 02/05/24 Fecal debra 12/2021 <50.0 Prior surgeries: Ileal colectomy. 01/31. ICR ex lap 08/[address] Kamara Diagnosis: Ileum and colon with anastomosis, secondary ileocolic resection - Segment of ileum with a stricture and and chronic active ileitis with associated ulceration, pyloric gland metaplasia, muscularis mucosae and propria hypertrophy, and transmural inflammation with lymphoid aggregates, consistent with clinical history of Crohn's disease - Intact anastomosis to a segment of bowel with no histopathologic abnormality - Surgical resection margins with no histopathologic abnormality - No evidence of dysplasia or malignancy Endoscopies: Colon 04/2020 Patent end-to-side ileo-colonic anastomosis, characterized by inflammation. - The examination was otherwise normal on direct and retroflexion views. DIAGNOSIS: Ileocolonic anastomosis, biopsy: - Ulcer, acute and chronic inflammation, and reactive changes Colon 10/2017 Patent end-to-side ileo-colonic anastomosis, characterized by inflammation. Biopsied. - Congested, erythematous, furrowed, inflamed and ulcerated mucosa in the terminal ileum. Biopsied. - The examination was otherwise normal on direct and retroflexion views. - Ileal Crohn's disease. Biopsied. Diagnosis: A. Terminal ileum, biopsy: - Benign small bowel mucosa with acute inflammation and focal cryptitis. B. Ileocolonic anastomosis, biopsy: - Benign small bowel and colonic mucosa with acute inflammation and focal cryptitis. Specimen(s) Received: A: Terminal ileum B: Ileocolonic anastamosis Microscopic Description: A. Sections show superficial biopsies of small bowel mucosa which shows an underlying stroma which is mildly edematous with mixed inflammation. The overlying epithelium is significant for acute inflammation. A few of the underlying crypts also show some focal cryptitis. There is no evidence of dysplasia or malignancy seen. B. Sections show fragments of small bowel and colonic mucosa which show acute inflammation within the lamina propria as well as the overlying surface epithelium. A few of the underlying crypts show cryptitis. There is no evidence of dysplasia or malignancy. Imaging: CTE 03/2023 IMPRESSION: 1. Slight decrease in distention of small bowel proximal to an inflamed segment of long segment stricture of the neoterminal ileum. No evidence for abscess or penetrating disease. 2. Subtle findings at the junction of the descending colon and sigmoid colon which may represent an area of mild inflammation. There is no evidence for a stricture or penetrating disease at this level. Note, this area nondistended on the prior study but this finding appears new. CTE 08/2022 IMPRESSION: 1. Unchanged chronic thickening of the neoterminal ileum with likely component of stenosis as evidenced by upstream dilation, decreased from prior examination. No abscess or fistulization. 2. Ventral hernia containing nonobstructed loop of transverse colon. CT 05/2022 IMPRESSION: 1. Grossly unchanged ileitis involving the neoterminal ileum with persistent more proximal dilated fluid-filled loops of small bowel which have not changed since prior examination. These findings may represent at least partial small bowel obstruction. 2. Paraumbilical hernia containing a small portion of nondilated loop of transverse colon. CTE 12/24/21 IMPRESSION: 1. Ileitis involving the neoterminal ileum with a long stricture resulting in obstructive dilatation and air-fluid levels, likely secondary to slow transit. This appears somewhat similar to the reference examination. 2. Mild wall thickening and enhancement of the midportion of the descending colon, could indicate active disease. 3. Changes of ventral hernia repair with persistent small hernia containing a small portion of nonobstructed transverse colon. MRCP 06/2021 IMPRESSION: 1. Mild central intrahepatic ductal dilation with tapering at the level of the ampulla, likely representing reservoir effect after cholecystectomy. No suspicious biliary abnormality. 2. Normal pancreas. 3. Right adrenal adenoma. CT 04/24/21 IMPRESSION: 1. Redemonstrated sami-terminal ileitis with a stricture resulting in upstream dilatation and air-fluid levels in the distal small bowel, likely secondary to slow transit. 2. Moderate biliary ductal dilatation with prominent pancreatic duct. Indeterminate right adrenal gland nodule. Recommend further evaluation with MRCP if clinically indicated. 3. Changes of ventral hernia repair with persistent small hernia containing a small portion of the nonobstructed transverse colon. CT 02/2021 IMPRESSION: 1. Abnormal thickening of the distal most small bowel moderate in severity consistent with known Crohn's disease. There is some small bowel distention which may indicate a partial small bowel obstruction. No high-grade obstruction seen. 2. Abnormally dilated biliary ductal system and pancreatic duct which has increased from prior study. Consider ERCP or MRCP. Clinical correlation recommended. Abd usg limited 02/2021 IMPRESSION: 1. Mild dilation of the extrahepatic bile ducts is likely related to reservoir phenomenon in the setting of prior cholecystectomy and non-elevated alkaline phosphatase and bilirubin, although the region of the ampulla is not well visualized by sonography. Main pancreatic duct measures at the upper limits of normal. Further evaluation can be performed with ERCP or MRCP in the appropriate clinical setting. Recent SBO mobap 04/2020. TI disease noted in fall. CTE 07/2020 IMPRESSION: 1. Approximate 10 cm segment of active inflammation of the neoterminal ileum, improved in appearance to recent April 2020 and January 2020 imaging. No evidence of penetrating disease or stricture/fibrostenosing disease. IBD HEALTH [employer]TE[employer]CE HBV vaccination status: Immune Covid vaccine: Moderna x3 Assessment & Plan (07/11/2024 3:11 PM CDT): CD on skyrizi and having some increased bm's. May be cholorrheic. ? IBD arthropathy. Will trial colestipol and have her see Rheum and see if they have some better way of handling the arthralgias. Will f/u in 4 mo. Go from there. Assessment & Plan (04/11/2024 4:03 PM MOUNTER): CD doing well s/p resection. Will continue same and f/u in 3 mo. Recommend flu and covid immunization. Assessment & Plan (11/23/2023 2:33 PM CDT): CD doing well s/p IC resection, Mutch. Will begin skyrizi and f/u in 3-4 mo. Truly looks good. Assessment & Plan (07/27/2023 1:29 PM CDT): CD tolerating the clear liquids but needs to proceed with surgery. Wishes to avoid stoma. I told her no guarantee's but I believe she will tet anastomosis. Even if she had stoma it would be termporary and we would get her through it. She knows I have had a stoma for 54 years. Seeing Galdino Kamara later this afternoon. Assessment & Plan (06/28/2023 12:28 PM MOUNTER): Patient with history of re-occuring Crohn's exacerbations and hospitalizations. Patient had several BMs yesterday and is passing gas. Has been tolerating clear liquids. GI consulted, recommended MRE, but patient declines as she would like to advance her diet and states that she does not tolerate the contrast well. Patient now more agreeable to surgery, and will have OP follow up with Dr. Kamara to discuss further. GI recommends resuming home entocort 9 mg daily and OP follow up with Dr. Rodriguez. Assessment & Plan (06/26/2023 5:48 AM MOUNTER): -GI consult in AM -hold steroids, Abx for now Assessment & Plan (06/08/2023 3:23 PM MOUNTER): SBO that I suspect is fibrosed. Will get MRE with cine per Be Mcguire. Granulomatous skin condition that path says is not cutaneous CD that should be an atypical infection. Need ID's help on this as we need to treat her CD with skyrizi. As such will message ID who is to see her on July 03. I suspect depending on the MRE that we need surgery. Assessment & Plan (04/13/2023 4:36 PM MOUNTER): AT this point she and I do not believe the humira is working as such recommend skyrizi. She is agreeable. Will go from there and f/up in 8 weeks. ? Whether she is going to avoid surgery. I am not sure. Assessment & Plan (12/08/2022 4:30 PM CDT): CD tolerating the humira. Will continue same and /fup in 4 mo. ? Timing of scope vs imaging. Assessment & Plan (09/01/2022 1:20 PM CDT): CD seemingly stable to improved based on the CTE findings. Will continue the humira at current dosing and will f/u in the office in 3 mo. She will decrease the pdn from 10 to 5 x 2 weeks and then off. Assessment & Plan (07/07/2022 4:36 PM CDT): CD with recent sbo. Question at this time is whether this is surgical or medical. I suspect she has a fibrotic stricture with overlying inflammation. How much remains to be seen. Will check a f/up CTE and see what we are left with in 2 weeks. She will f/up after this and at that point decide whether this is surgical or not. If she still has dilated small bowel going into this segment then I suspect she has a significant enough fibrosis that surgery is the option. Will go from there. Will also rx fluconazole for boston vaginitis. Assessment & Plan (05/19/2022 3:38 PM MOUNTER): CD refractory. Needs to start humira. Says she will do so today. Will f/up in 3 mo. We looked together at the ventral hernia on her CT scan ( I illustrated it on the screen for her. Will go from there. Assessment & Plan (03/31/2022 1:10 PM MOUNTER): At this point she needs: 1. Liver panel 2. MRCP 3. CTE 4 go for adalimunab ? CBD stone. Noted to have adequate stelara yet progressive sx's. Will get baseline CTE and go with humira. Assessment & Plan (08/19/2020 10:19 AM CDT): At this point she needs to stop smoking. Would begin with stelara with back of pf humira with possible thiopruine. Check TPMT gentoype and proceed accordingly. F/up in 3 months. Assessment & Plan (07/22/2020 10:15 AM CDT): Patient with IC CD and recent SBO admitted at [facility] for same. Will get CTE, labs, FC and f/up. She will likely need Stelara as her med with back up plan of humira but would want to get the new gene checked if we go there relative to the risk of developing ab's to the thiopurines. She must stop smoking. Assessment & Plan (11/22/2017 11:44 AM CDT): Uncontrolled. She has a previous history of ileocolonic Crohn's disease with entero-vesical fistula. The patient is very noncompliant. She had refused taking azathioprine in the past. She also refuses therapy with Humira or Remicade out of concern for possible complications in future. The most recent colonoscopy revealed disease in the terminal ileum and ileocecal junction. I informed the patient of the potential complications of untreated Crohn's disease and touched on possible abscesses, fistula and even malignant transformation. I reviewed the range of possible medications that can be used. She does not want to be treated with prednisone. She however agrees to be treated with sulfasalazine. Prescription for sulfasalazine 1 g b.i.d. was authorized. Edema of lower extremity 02/19/2016 Bacterial vaginosis 01/22/2016 Mass of uterine adnexa 11/06/2015 Hidradenitis 05/21/2014 Breast pain 05/16/2014 Tobacco dependence syndrome 09/07/2013 Overview (07/28/2016): Tobacco abuse Assessment & Plan (04/26/2021 10:48 AM MOUNTER): Active smoker, may be contributing to IBD. Nicotine patch and will recommend cessation. Assessment & Plan (04/25/2021 9:38 AM MOUNTER): Active smoker, may be contributing to IBD. Nicotine patch and will recommend cessation. Family history of malignant neoplasm of breast in first degree relative 09/07/2013 Overview (07/28/2016): Family history of breast cancer in mother Vitamin D deficiency 09/07/2013 Overview (07/29/2016): Vitamin D deficiency Surgical follow-up care 05/28/2013 Eczema of hand 05/21/2013 Alopecia areata 05/21/2013 Blood glucose abnormal 04/12/2013 Ovarian retention cyst 01/04/2013 Abnormal mammogram 10/17/2011 Abdominal hernia 08/23/2010 B12 deficiency 08/19/2010 Current smoker 08/19/2010 Vitamin D deficiency disease 08/19/2010 Resolved Problems Problem Noted Date Diagnosed Date Resolved Date Crohn's disease with complication 09/01/2023 04/03/2024 High anion gap metabolic acidosis 07/03/2023 07/04/2023 Assessment & Plan (07/03/2023 4:43 PM CDT): Patient presenting with HAGMA, LA normal. Likely secondary to starvation ketosis in setting of stricture, and inability to keep much down PO. No history of diabetes, and no other clear precipitant to suggest other source or infection. - Will start patient on D5LR at this time, start on CLD. - Follow up BMP in the morning. HTN (hypertension) 07/03/2023 Assessment & Plan (07/03/2023 4:41 PM CDT): Patient with history of hypertension on Valsartan, will hold medication at this time as patient normotensive. Hypokalemia 06/26/2023 07/15/2024 Assessment & Plan (06/28/2023 12:35 PM MOUNTER): K 2.4 in ED. Likely 2/2 uGI losses and inability to replete enterally. Resolved. Assessment & Plan (06/26/2023 5:46 AM MOUNTER): -K 2.4 in ED -likely 2/2 uGI losses and inability to replete enterally -she only received 40 mEq IV KCL in ED, which would not be expected to get her above 3.0 mmol/L -she did receive 2g IV MgSO4 for mag level 1.4 -after repeat BMP after MN, K up to 2.7 -80 mEq IV KCL ordered -telemetry monitoring as hypokalemia is associated with cardiac arrhythmias Small bowel obstruction 06/25/202303/24 Assessment & Plan (06/28/2023 12:35 PM MOUNTER): This is her 4th presentation to our facility with symptomatic SBO since midMarch. During each previous presentation, cross-sectional imaging as revealed a stricture at the distal ileum; the location is, essentially, unchanged/fixed. This likely represents a fibrotic stricture rather than an inflammatory one. Patient refused MRE inpatient for further evaluation. Patient had several BMs and diet was advanced. Electrolytes repleted as needed. Low fiber diet encouraged. Patient will follow up OP with Dr. Kamara to discuss surgery. Assessment & Plan (06/26/2023 6:18 AM MOUNTER): -this is her FOURTH presentation to our facility with symptomatic SBO since mid -during each previous presentation, cross-sectional imaging as revealed a stricture at the distal ileum; the location is, essentially, unchanged/fixed -this likely represents a fibrotic stricture rather than an inflammatory one; as such, steroids and immuno-modulators are unlikely to have any effect -NPO x sips/ice chips -mIVFs -PRN analgesics and anti-emetics -will consult GI in AM -MRI/MRE in AM -as she has basically failed multiple conservative management attempts over the past 4 months and given the static nature of the stricture, I suspect she will need surgical resection during this hospitalization Small bowel obstruction 01/16/202303/24 Assessment & Plan (01/19/2023 10:42 AM CDT): History of Crohns with prior SBO with known stricture at terminal ileum. Presented 01/16 with abd pain, N/V. Had recently received Humira injection with improvement in symptoms overall, had been on sterlara prior to this with frequent hospitalizations. CT shows small bowel obstruction secondary to a long segment stricture and inflammation at the neoterminal ileum. - Patient symptoms overall improved on 01/18, and having multiple BMs. - Low fat/fiber diet, ADAT. Tolerating. - Continue to follow up on symptoms. - s/p IVF. - CTM electrolytes, daily BMP. - Will plan to discharge patient today. SBO (small bowel obstruction) 01/16/2023 04/03/2024 Assessment & Plan (07/07/2023 11:58 AM CDT): Patient presenting with ongoing abdominal pain with MRE indicative of small bowel stricture that has been known. Patient reports that she was tolerating PO diet when she left hospital, but at home has been having N/V with multiple episodes of emesis (no blood). Has been having BM and passing gas. She has been resistant to NG tube as well for her symptoms. She is going to follow up with Dr Kamara in July regarding potential surgical options. - CRS has evaluated, no acute surgical intervention. Plan to follow along. Will follow patient TPN as outpatient. - Patient tolerating CLD. - PRN Zofran. Ingrown nail 09/08/2022 07/15/2024 Exacerbation of Crohn's disease 06/16/2022 04/03/2024 Assessment & Plan (07/07/2023 11:57 AM CDT): Patient with history of reoccuring Crohn's exacerbations and hospitalizations. Follows with Dr Acosta team. She has been having 4-5 BM a day without blood. Has been having N/V likely secondary to stricture. Patient underwent MRE in ED which did show persistent findings of long segment distal and terminal ileal stricture with moderate upstream dilation likely compatible with SBO. Notable for chronic inflammation. - GI consulted, recommending to not advance patient past CLD in order to keep patient out of the hospital, considering TPN as bridge to surgery while considering further surgical options. - Patient denying wanting TPN on discharge, would like it to be discontinued. Have discussed concerns/risks of increasing PO diet including SBO with known stricture. GI recommending Full liquid diet for her on discharge to meet caloric needs, heading and priming tool setter has met with patient. - Will follow up as outpatient after surgery for any further medical management. - The overall feeling is much of patients symptoms related to stricture that would not respond to steroids, and patient will likely need surgery for definitive management. Has been resistant because of not wanting ostomy pouch. Assessment & Plan (06/20/2022 1:33 PM MOUNTER): -presenting with abd pain, diarrhea, N/V -inflammatory markers not elevated but CT suggestive of active colitis in anatomic region corresponding to patient's symptoms -she endorses compliance with Humira -GI consulted. Appreciate recommendations. Will defer scope inpatient. -Started entocort on 06/18 with symptom improvement. Will continue on dc until follow-up. -Was started on metronidazole. Will transition to 1 week course ciprofloxacin on dc per GI. - PRN analgesics/antiemetics; avoid NSAIDs Assessment & Plan (06/16/2022 10:22 PM MOUNTER): -presenting with abd pain, diarrhea, N/V -inflammatory markers not elevated but CT suggestive of active colitis in anatomic region corresponding to patient's symptoms -she endorses compliance with Humira -will send stool for Cdiff, O&P, fecal calprotectin -IVFs overnight -NPO p MN just in case -GI consult in AM -PRN analgesics/antiemetics; avoid NSAIDs Ileitis 04/25/2021 04/03/2024 Small bowel stricture 04/25/20212023 Assessment & Plan (04/26/2021 10:47 AM MOUNTER): Patient has likely stricture seen on CT scan today without overt obstruction. D/w GI fellow, no current plans for endoscopy, advance diet as tolerated. Assessment & Plan (04/25/2021 9:39 AM MOUNTER): Patient has likely stricture seen on CT scan today without overt obstruction. D/w GI fellow, no current plans for endoscopy, advance diet as tolerated. Exacerbation of Crohn's dise ase with complication 04/25/2021 04/03/2024 Assessment & Plan (04/26/2021 10:47 AM MOUNTER): Patient presents with abdominal pain, nausea, and vomiting. H/o crohn's maintained on stellara, last infused Apr 04. CT scan reveals continued neoterminal ileitis and stricture likely due to active Crohn's disease. We have consulted Gastroenterology. Will provide morphine p.r.n. pain and Zofran p.r.n. nausea. Patient doing better this AM without specific Crohn's treatment, ie steroids. D/w GI fellow regarding abdominal pain. Suspect acute pain was due to non-compliance with low residue diet in the setting of chronic strictures, as pain started shortly after eating raisin bran. Doing well today, abd pain resolved, tolerating low residue diet. Will consult heading and priming tool setter for diet teaching and discharge home with outpatient GI f/u. Assessment & Plan (04/25/2021 9:37 AM MOUNTER): Patient presents with abdominal pain, nausea, and vomiting. H/o crohn's maintained on stellara, last infused Apr 04. CT scan reveals continued neoterminal ileitis and stricture likely due to active Crohn's disease. We have consulted Gastroenterology. Will provide morphine p.r.n. pain and Zofran p.r.n. nausea. Patient doing better this AM without specific Crohn's treatment, ie steroids. D/w GI fellow. Advance diet as tolerated, discharge once tolerating low residue diet. Leukocytosis 04/25/2021 07/15/2024 Assessment & Plan (04/26/2021 10:48 AM MOUNTER): WBC 15, likely reactive 2/2 Crohn's. Normalized without intervention. No symptoms of infection. Assessment & Plan (04/25/2021 9:39 AM MOUNTER): WBC 15, likely reactive 2/2 Crohn's. Normalized without intervention. 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 She had refused taking azathioprine in the past. Last colonoscopy was in 2013 that showed ileitis. Plan Colonoscopy recommended. She was counseled that the best medication for Crohn's disease are antiTNF agents. She is receptive to the idea of being treated. She was counseled about the possible side effects including malignancies and unmasking of tuberculosis or fungal infections. The patient verbalized understanding. Check PPD, CXR. Check CBC, CMP and fecal calprotectin. Time for counseling 30mins. Total time spent 55mins. Abdominal pain 11/09/2011 03/19/2021 Crohn's disease 08/21/2010 04/03/2024 Overview (08/03/2017): Description: Crohn's Disease Assessment & Plan (01/19/2023 10:41 AM CDT): Follows with Dr. Rodriguez with GI, on Humira. SBO at location of stricture at terminal ileum with associated inflammation. Patient does have history of ileal stricture. - GI consult, appreciate recommendations. Recommended following up with Dr. Rodriguez on discharge. - IV solumedrol 60 mg daily. -- > Will d/c on Enterocort 9 mg x 2 weeks on discharge. - Pantoprazole daily. Will refill on discharge. - Flagyl 250 mg TID. --> Will discharge on PO Flagyl x 2 weeks on discharge. - Discussion of escalation of outpatient Humira. Patient to follow up with her GI doctor on outpatient basis. Assessment & Plan (07/31/2019 6:36 PM CDT): Uncontrolled. Patient is poorly compliant. The only reason she called into the office was because she is concerned about her risk for COVID-19 virus since she knows that she is immunocompromised on the basis of Crohn's disease. She apparently had received prescription for antibiotic t o prevent COVID-19 . She denies exposure or feeling fever or having cough. I advised the patient that she should adhere to social distancing and washer hands as often as possible. Assessment & Plan (05/01/2019 12:17 PM MOUNTER): Uncontrolled. The patient is poorly compliant. She has not followed up for treatment since the most recent colonoscopy in October 2017. At that time she was found to have terminal ileum disease. She has been taking probiotic. Has symptoms appear mild to moderately severe since she has 4 loose bowel movements daily that are non-bloody. Plan Will repeat colonoscopy to assess current status of the disease. The patient was counseled about the importance of compliance with office visits and medical therapy in the management of Crohn's disease. Encounters Date Type Department Care Team Description 09/02/2024 Telephone [facility] [address] [place] [address] [place] [address] Mikaela Rosales RN 08/30/2024 Telephone [facility] [address] [place] [address] Medical Office Building 4 [address] [place] [id number] Lacie Causey RN 07/15/2024 10:00 AM CDT Office Visit [facility] [address] [place] [phone] Isidro Garza MD B12 deficiency (Primary Dx); Well adult exam; Crohn's colitis, other complication (HCC); Essential hypertension; Vitamin D deficiency; H/O abnormal mammogram; Mass of breast, unspecified laterality; Breast pain 07/11/2024 2:40 PM CDT Office Visit [facility] [address] [place] [address] [place] [address] Demarcus Rodriguez MD Arthropathies (Primary Dx); Crohn's disease of small intestine with other complication (HCC); High risk medications (not anticoagulants) long-term use; Vitamin B12 deficiency 07/03/2024 Documentation [facility] [address] [place] [address] [place] [id number] Mikaela Rosales RN Med Management 07/02/2024 Telephone [facility] [address] [place] [address] [place] [address] [place] [address] Mikaela Rosales RN 06/27/2024 Telephone [facility] [address] [facility] 12th [place] [address] [place] [address] Mikaela Rosales RN 06/25/2024 Telephone [facility] [address] [facility] 12th [place] [address] [place] [address] Demarcus Rodriguez MD Med Management (Skyrizi clarification) 06/24/2024 Telephone [facility] [address] [place] [address] Medical Office Building [address] [place] [address] Mikaela Rosales RN 06/18/2024 Telephone [facility] 12th [place] [address] Mikaela Rosales, RN from Last 3 Months Immunizations Immunization Administration Dates Next Due Hep A / Hep B 10/26/2010 Hep A, Adult 03/25/2020,06/23/2017 Influenza, Quadrivalent, Gabrielle l Culture-based MDCK, Antibiotic Free, Intramuscular 02/05/2021,02/07/2018 Influenza, Quadrivalent, Gabrielle l Culture-based MDCK, Preservative Free, Antibiotic Free, Intramuscular 01/23/2020,01/10/2019 Influenza, Quadrivalent, Spl it, Preservative Free, Intramuscular 07/06/2017 Influenza, Split 02/03/2011 Influenza, Trivalent, Preser vative Free, Intramuscular 02/03/2012,04/02/2010 Influenza, Unspecified 01/22/2023,02/07/2016 MMR 04/09/1997 Moderna SARS-CoV-2 Monovalen t Vaccination (12+ YRS) 06/22/2020,05/25/2020 PPD TEST 01/28/2014 Pneumococcal Polysaccharide PPV23 2019,04/26/2017,01/22/2016,01/12 Tdap 01/12/2009 Surgical History Surgery Date Site/Laterality Comments HERNIA REPAIR 04/24/2010 - 04/23/2011 Hernia repair CHOLECYSTECTOMY 04/24/1995 - 04/23/1996 Cholecystectomy TUBAL LIGATION 04/24/1992 - 04/23/1993 Bilateral tubal ligation HYSTERECTOMY 04/24/2004 - 04/23/2005 Hysterectomy OTHER SURGICAL HISTORY 04/24/2008 - 04/23/2009 crohns: post ileocolic resection, bladder fistula repair, ABDOMINAL SURGERY COLONOSCOPY 2012 ORIF CALCANEAL FRACTURE 03/26/2019 Left ORIF FOOT SURGERY IR PICC LINE PLACEMENT > 5 YEARS 07/04/2023 N/A EXPLORATORY LAPAROTOMY 09/01/2023 Exploratory laparotomy with redo ileocolic anastomosis Medical History Medical History Date Comm
--- OUTSIDE RECORDS SUMMARY | 2024-09-05 13:57 | XMS_ITS | Encounter Summary ---
Author Organization [facility] Address [address] [place] [address] Care Team Providers Care Fiscal Services Director Name Role Phone Unavailable Primary Care Provider Unavailabl e Encounter Details Date Type Department Care Team (Late st Contact Info) Description 05/20/2020 Lab Requisition [facility] [address] [place] [address] Santhosh Mcfadden MD [address] [place] [address] Social History Tobacco Use Types Packs/Day Years Used Date Smoking Tobacco: Never Assessed Comments Unknown Sex and Gender Information Value Date Recorded Sex Assigned at Not on file Legal Sex Female 6:53 PM ELECTRICAL TESTER BATTERY Gender Identity Not on file Sexual Orientation Not on file documented as of this encounter Plan of Treatment Not on file documented as of this encounter Procedures Procedure Name Priority Date/Time Associated Diagnosis Comments 2019 NOVEL CORONAVIRUS (COVID-19) PCR DETECTION Routine 05/20/2020 11:44 AM ELECTRICAL TESTER BATTERY documented in this encounter Results * 2019 NOVEL CORONAVIRUS (COVID-19) PCR DETECTION (05/20/2020 11:44 AM ELECTRICAL TESTER BATTERY) COVID-19 PCR NOT DETECTED Not Detected 05/21/19 21 1:27 AM ELECTRICAL TESTER BATTERY [facility] PERFORMING LAB [facility] 05/21/2020 1:27 AM ELECTRICAL TESTER BATTERY [facility] Upper Respiratory Collection / Unknown 05/20/2020 11:44 AM ELECTRICAL TESTER BATTERY 05/20/2020 7:02 PM ELECTRICAL TESTER BATTERY Narrative [facility] - 05/21/2020 1:27 AM ELECTRICAL TESTER BATTERY This test has been authorized by the FDA under an Emergency Use Authorization for use by authorized laboratories. This test has been validated in accordance with the FDA's guidance regarding Coronavirus Disease-2019 testing. Optimum specimen types and timing for peak viral levels during infection have not been determined. A negative RT-PCR result does not rule out infection with the 2019-Novel Coronavirus. Santhosh Mcfadden MD MICROBIOLOGY - GENERAL ORDERA BLES Final Result Performing Organization Address [facility]/State/[facility] Co de Phone Number [facility]# [id number] [address] [facility] [place] [address] documented in this encounter Visit Diagnoses Not on filedocumented in this encounter
--- OUTSIDE RECORDS SUMMARY | 2024-09-05 13:57 | XMS_ITS | Encounter Summary ---
Author Organization [facility] Healthcare Address [address] [place] [address] Care Team Providers Care Automotive Parts Advisor Name Role Phone Isidro Garza MD Primary Care Provider + Tyshawn Liang MD Unavailable [phone] Cassi Paredes MD Unavailable [phone] Connie Ortega MD Unavailable Encounter Details Date Type Department Care Team (Late st Contact Info) Description 02/01/2024 Telephone [facility] [address] [facility] [address] [place] [address] Hilda Barnard RN Social History Tobacco Use Types Packs/Day Years Used Date Smoking Tobacco: Former Cigarettes 0.5 30 1 05/22/1991 - 03/22/2022 Passive Smoke Exposure: Past Smokeless Tobacco: Never Comments:Smoking History Pac ks/day: 20 Cigarettes Alcohol Use Standard Drinks/Week Comments Yes 0 (1 standard drink = 0.6 oz pur e alcohol) social [facility] Utilities Answer Date Recorded In the past 12 months has [employer], gas, oil, or water company threatened to [...] more drinks on one occasion? Never 08/18/2023 Overall Financial Resource Strain (CARDIA) Answe r Date Recorded How hard is it for you to pa y for the very basics like food, housing, medical care, and heating? Not very hard 09/04/2023 PHQ-2 Answer Date Recorded PHQ-2 Total Score (If total score is 3 or more points, staff should administer the PHQ-9) 2 07/31/2019 Hunger Vital Sign Answer Date Recorded Within the past 12 months, y ou worried that your food would run out before you got the money to buy more. Never true 09/04/19 24 Within the past 12 months, t he food you bought just didn't last and you didn't have money to get more. Never true 09/04/2023 PRAPARE - Transportation Answer Date Re corded In the past 12 months, has l ack of transportation kept you from medical appointments or from getting medications? No 08/22 In the past 12 months, has l ack of transportation kept you from meetings, work, or from getting things needed for daily living? No 09/04/2023 Housing Stability Vital Sign Answer Alverto e Recorded In the last 12 months, was t here a time when you were not able to pay the mortgage or rent on time? No 09/04/2023 In the last 12 months, how many places have you lived? 2 09/04/2023 In the last 12 months, was t here a time when you did not have a steady place to sleep or slept in a nursing home (including now)? No 09/04/2023 Personal Safety Answer Date Recorded Have you ever been in or are you currently in a harmful physical or emotional relationship or is someone making you feel afraid or unsafe? Denies 02/05/2024 Comments No Sex and Gender Information Value Date Recorded Sex Assigned at Not on file Legal Sex Female 1:49 AM SWING GRINDER Gender Identity Not on file Sexual Orientation Not on file documented as of this encounter Plan of Treatment Not on file documented as of this encounter Visit Diagnoses Not on filedocumented in this encounter Care Teams Automotive Parts Advisor Relationship Specialty Start Date End Date Isidro Garza MD PCP - General 07/22/16 Tyshawn Liang MD Consulting Physician Orthopedic Surgery 09/26/19 Cassi Paredes MD Consulting Physician Gastroenterology 05/04/20 Connie Ortega MD [address] [address] Surgeon Surgical Oncology 03/31/22 documented as of this encounter
--- OUTSIDE RECORDS SUMMARY | 2024-09-05 13:57 | XMS_ITS | Encounter Summary ---
Author Organization [facility] Healthcare Address [address] [place] [address] Care Team Providers Care Hotbed Transfer Operator Name Role Phone GregIsidro MD Primary Care Provider + Tyshawn Liang MD Unavailable [phone] Cassi Paredes MD Unavailable [phone] Connie Ortega MD Unavailable [phone] Encounter Details Date Type Department Care Team (Late st Contact Info) Description 08/12/[address] [facility] [address] [address] GABBIEEMILY JIM [place] [id number] Coral Castillo, RT Social History Tobacco Use Types Packs/Day Years Used Date Smoking Tobacco: Heavy Smoker Cigarettes 1 30 Smokeless Tobacco: Never Comments:Smoking History Pac ks/day: 20 Cigarettes Alcohol Use Standard Drinks/Week Comments Yes 0 (1 standard drink = 0.6 oz pur e alcohol) social AUDIT-C Answer Date Recorded Q1: How often do you have a drink containing alc ohol? Monthly or less 07/22/2020 Average Number of Drinks Not on file 021 Frequency of Binge Drinking Not on file 06/24 PHQ-2 Answer Date Recorded PHQ-2 Total Score (If total score is 3 or more points, staff should administer the PHQ-9) 2 07/31/2019 Comments No Sex and Gender Information Value Date Recorded Sex Assigned at Not on file Legal Sex Female 1:49 AM TITLE MANAGER Gender Identity Not on file Sexual Orientation Not on file documented as of this encounter Plan of Treatment Not on file documented as of this encounter Visit Diagnoses Not on filedocumented in this encounter Additional Health Concerns Infection Onset Date Last Indicated Resolved Time COVID: Suspected 04/25/2021 04/25/2021 04/25/2021 1:12 AM TITLE MANAGER COVID: Suspected 05/28/2023 05/28/2023 05/28/2023 4:03 PM TITLE MANAGER COVID: Suspected 05/28/2023 05/28/2023 05/28/2023 9:29 PM TITLE MANAGER Varicella/Zoster, contact + airborne Comment:05/29/2023- Per ID consult, rash is not consistent with shingles. Lou Cali R/O dissemination. Please contact IP if dissemination ruled out. 05/29/2023 05/29/2023 05/29/2023 6 :33 PM TITLE MANAGER Exposure, COVID-19 Comment:Per RN exposed to COVID+ on 05/26/23. No need to test unless symptomatic. Please monitor for symptoms. Negative COVID test does not remove precautions, pt must remain on exposure precautions 10 days post last exposure. Pt's last day of precautions is 06/05/23. 05/29/2023 05/29/2023 3:05 AM TITLE MANAGER Conjunctivitis 07/06/2023 07/06/2023 07/20/2023 3: 05 AM CDT COVID: Suspected 09/26/2023 09/26/2023 09/26/2023 2:27 PM CDT documented as of this encounter Care Teams Hotbed Transfer Operator Relationship Specialty Start Date End Date Isidro Garza MD PCP - General 07/22/16 Tyshawn Liang MD Consulting Physician Orthopedic Surgery 09/26/19 Cassi Paredes MD Consulting Physician Gastroenterology 05/04/20 Connie Ortega MD [address] [address] Surgeon Surgical Oncology 03/31/22 documented as of this encounter
--- OUTSIDE RECORDS SUMMARY | 2024-09-05 13:57 | XMS_ITS | Clinical Summary ---
Author Organization [facility] Address [address] [place] [address] Phone Care Team Providers Care Siderographist Name Role Phone Unavailable Primary Care Provider Unavailabl e Social History Tobacco Use Types Packs/Day Years Used Date Smoking Tobacco: Never Assessed Comments Unknown Sex and Gender Information Value Date Recorded Sex Assigned at Not on file Legal Sex Female 6:53 PM CASH ANALYST Gender Identity Not on file Sexual Orientation Not on file Plan of Treatment Health Maintenance Due Date Last Done Comments DTAP/TDAP/TD VACCINES (1 - Tdap) 1990 HEPATITIS B VACCINES (1 of 3 - 19+ 3-dose series) 03/26 HPV/Cotest (21-29) 1992 CERVICAL CANCER SCREENING 2001 HPV/Cotest (30-65) 2001 PAP SMEAR 2001 BREAST CANCER SCREENING 2011 COLORECTAL SCREENING 2016 Colorectal Cancer Screening 2016 FIT-DNA Q 3 years 2016 FIT/FOBT Q 1 year 2016 Flex Sig/CT Colonography Q 5 years 2016 ZOSTER VACCINE (1 of 2) 2021 INFLUENZA VACCINE (#1) 2023 Insurance [place]
--- OUTSIDE RECORDS SUMMARY | 2024-09-05 13:57 | XMS_ITS | Encounter Summary ---
Author Organization [facility] Address [address] [place] [address] Phone Care Team Providers Care Crew Boat Operator Name Role Phone Isidro Garza MD Primary Care Provider + Tyshawn Liang MD Unavailable [phone] Cassi Paredes MD Unavailable [phone] Connie Ortega MD Unavailable [phone] Encounter Details Date Type Department Care Team (Late st Contact Info) Description 06/29/2022 Orders Only [facility] Scanning, Provider Social History Tobacco Use Types Packs/Day Years Used Date Smoking Tobacco: Former Cigarettes 0.5 30 1 05/22/1991 - 03/22/2022 Smokeless Tobacco: Never Comments:Smoking History Pac ks/day: 20 Cigarettes Alcohol Use Standard Drinks/Week Comments Yes 0 (1 standard drink = 0.6 oz pur e alcohol) social AUDIT-C Answer Date Recorded Q1: How often do you have a drink containing alc ohol? 2-3 times a week 09/15/2021 Q2: How many drinks containi ng alcohol do you have on a typical day when you are drinking? 1 or 2 09/15/2021 Q3: How often do you have si x or more drinks on one occasion? Never 09/15/2021 PHQ-2 Answer Date Recorded PHQ-2 Total Score (If total score is 3 or more points, staff should administer the PHQ-9) 2 07/31/2019 Comments No Sex and Gender Information Value Date Recorded Sex Assigned at Not on file Legal Sex Female 1:49 AM MOLD SHIFTER Gender Identity Not on file Sexual Orientation Not on file documented as of this encounter Plan of Treatment Not on file documented as of this encounter Procedures Procedure Name Priority Date/Time Associated Diagnosis Comments SCAN - RADIOLOGY/IMAGING 06/29/2022 documented in this encounter Results * SCAN - RADIOLOGY/IMAGING (06/29/2022) Anatomical Region Laterality Modality Other us Provider Scanning Edited Result - Final documented in this encounter Visit Diagnoses Not on filedocumented in this encounter Additional Health Concerns Infection Onset Date Last Indicated Resolved Time COVID: Suspected 05/28/2023 05/28/2023 05/28/2023 4:03 PM MOLD SHIFTER COVID: Suspected 05/28/2023 05/28/2023 05/28/2023 9:29 PM MOLD SHIFTER Varicella/Zoster, contact + airborne Comment:05/29/2023- Per ID consult, rash is not consistent with shingles. Lou Cali R/O dissemination. Please contact IP if dissemination ruled out. 05/29/2023 05/29/2023 05/29/2023 6 :33 PM MOLD SHIFTER Exposure, COVID-19 Comment:Per RN exposed to COVID+ on 05/26/23. No need to test unless symptomatic. Please monitor for symptoms. Negative COVID test does not remove precautions, pt must remain on exposure precautions 10 days post last exposure. Pt's last day of precautions is 06/05/23. 05/29/2023 05/29/2023 3:05 AM MOLD SHIFTER Conjunctivitis 07/06/2023 07/06/2023 07/20/2023 3: 05 AM CDT COVID: Suspected 09/26/2023 09/26/2023 09/26/2023 2:27 PM CDT documented as of this encounter Care Teams Crew Boat Operator Relationship Specialty Start Date End Date Isidro Garza MD PCP - General 07/22/16 Tyshawn Liang MD Consulting Physician Orthopedic Surgery 09/26/19 Cassi Paredes MD Consulting Physician Gastroenterology 05/04/20 Connie Ortega MD [address] [address] Surgeon Surgical Oncology 03/31/22 documented as of this encounter
--- OUTSIDE RECORDS SUMMARY | 2024-09-05 13:57 | XMS_ITS | Encounter Summary ---
Author Organization [facility] Healthcare Address [address] [place] [address] Care Team Providers Care Hitting Coach Name Role Phone Isidro Garza MD Primary Care Provider + Tyshawn Liang MD Unavailable [phone] Cassi Paredes MD Unavailable [phone] Connie Ortega MD Unavailable [phone] Encounter Details Date Type Department Care Team (Late st Contact Info) Description 07/02/2021 Telephone [facility] [address] [place] [address] Nunu Alba NP [address] [place] [address] Social History Tobacco Use Types Packs/Day Years Used Date Smoking Tobacco: Heavy Smoker Cigarettes 1 30 Smokeless Tobacco: Never Comments:Smoking History Pac ks/day: 20 Cigarettes Alcohol Use Standard Drinks/Week Comments Yes 0 (1 standard drink = 0.6 oz pur e alcohol) social AUDIT-C Answer Date Recorded Q1: How often do you have a drink containing alc ohol? Monthly or less 05/05/2021 Q2: How many drinks containi ng alcohol do you have on a typical day when you are drinking? 1 or 2 05/05/2021 Q3: How often do you have si x or more drinks on one occasion? Never 05/05/2021 PHQ-2 Answer Date Recorded PHQ-2 Total Score (If total score is 3 or more points, staff should administer the PHQ-9) 2 07/31/2019 Comments No Sex and Gender Information Value Date Recorded Sex Assigned at Not on file Legal Sex Female 1:49 AM CRYSTAL GRINDER Gender Identity Not on file Sexual Orientation Not on file documented as of this encounter Plan of Treatment Not on file documented as of this encounter Visit Diagnoses Not on filedocumented in this encounter Additional Health Concerns Infection Onset Date Last Indicated Resolved Time COVID: Suspected 05/28/2023 05/28/2023 05/28/2023 4:03 PM CRYSTAL GRINDER COVID: Suspected 05/28/2023 05/28/2023 05/28/2023 9:29 PM CRYSTAL GRINDER Varicella/Zoster, contact + airborne Comment:05/29/2023- Per ID consult, rash is not consistent with shingles. Lou Cali R/O dissemination. Please contact IP if dissemination ruled out. 05/29/2023 05/29/2023 6:33 PM CRYSTAL GRINDER Exposure, COVID-19 Comment:Per RN exposed to COVID+ on 05/26/23. No need to test unless symptomatic. Please monitor for symptoms. Negative COVID test does not remove precautions, pt must remain on exposure precautions 10 days post last exposure. Pt's last day of precautions is 06/05/23. 05/29/2023 05/29/2023 3:05 AM CRYSTAL GRINDER Conjunctivitis 07/06/2023 07/06/2023 07/20/2023 3 :05 AM CDT COVID: Suspected 09/26/2023 09/26/2023 09/26/2023 2:27 PM CDT documented as of this encounter Care Teams Hitting Coach Relationship Specialty Start Date End Date Isidro Garza MD PCP - General 07/22/16 Tyshawn Liang MD Consulting Physician Orthopedic Surgery 09/26/19 Cassi Paredes MD Consulting Physician Gastroenterology 05/04/20 Connie Ortega MD [address] [address] Surgeon Surgical Oncology 03/31/22 documented as of this encounter
--- OUTSIDE RECORDS SUMMARY | 2024-09-05 13:57 | XMS_ITS | Encounter Summary ---
Author Organization [facility] Address [address] [place] [address] Phone Care Team Providers Care Freight Service Inspector Name Role Phone Isidro Garza MD Primary Care Provider + Tyshawn Liang MD Unavailable [phone] Cassi Paredes MD Unavailable [phone] Connie Ortega MD Unavailable [phone] Encounter Details Date Type Department Care Team (Late st Contact Info) Description 06/30/2022 Orders Only [facility] Scanning, Provider [...] on file Legal Sex Female 1:49 AM DATA ENTRY OPERATOR Gender Identity Not on file Sexual Orientation Not on file documented as of this encounter Plan of Treatment Not on file documented as of this encounter Procedures Procedure Name Priority Date/Time Associated Diagnosis Comments SCAN - RADIOLOGY/IMAGING 06/30/2022 documented in this encounter Results * SCAN - RADIOLOGY/IMAGING (06/30/2022) Anatomical Region Laterality Modality Other us Provider Scanning Final Result documented in this encounter Visit Diagnoses Not on filedocumented in this encounter Additional Health Concerns Infection Onset Date Last Indicated Resolved Time COVID: Suspected 05/28/2023 05/28/2023 05/28/2023 4:03 PM DATA ENTRY OPERATOR COVID: Suspected 05/28/2023 05/28/2023 05/28/2023 9:29 PM DATA ENTRY OPERATOR Varicella/Zoster, contact + airborne Comment:05/29/2023- Per ID consult, rash is not consistent with shingles. Lou Cali R/O dissemination. Please contact IP if dissemination ruled out. 05/29/2023 05/29/2023 05/29/2023 6 :33 PM DATA ENTRY OPERATOR Exposure, COVID-19 Comment:Per RN exposed to COVID+ on 05/26/23. No need to test unless symptomatic. Please monitor for symptoms. Negative COVID test does not remove precautions, pt must remain on exposure precautions 10 days post last exposure. Pt's last day of precautions is 06/05/23. 05/29/2023 05/29/2023 3:05 AM DATA ENTRY OPERATOR Conjunctivitis 07/06/2023 07/06/2023 07/20/2023 3: 05 AM CDT COVID: Suspected 09/26/2023 09/26/2023 09/26/2023 2:27 PM CDT documented as of this encounter Care Teams Freight Service Inspector Relationship Specialty Start Date End Date Isidro Garza MD PCP - General 07/22/16 Tyshawn Liang MD Consulting Physician Orthopedic Surgery 09/26/19 Cassi Paredes MD Consulting Physician Gastroenterology 05/04/20 Connie Ortega MD [address] [address] Surgeon Surgical Oncology 03/31/22 documented as of this encounter
--- OUTSIDE RECORDS SUMMARY | 2024-09-05 13:57 | XMS_ITS | Encounter Summary ---
Author Organization [facility] Address [address] [place] [address] Care Team Providers Care Rn Or Lpn Name Role Phone GregIsidro MD Primary Care Provider + Tyshawn Liang MD Unavailable [phone] Cassi Paredes MD Unavailable [phone] Connie Ortega MD Unavailable [phone] Encounter Details Date Type Department Care Team (Late st Contact Info) Description 08/11/2020 Telephone [facility] [id number] [place] JIM [place] [id number] Coral Castillo, RT Social History Tobacco Use [...] on file Legal Sex Female 1:49 AM [employer] Gender Identity Not on file Sexual Orientation Not on file documented as of this encounter Plan of Treatment Not on file documented as of this encounter Visit Diagnoses Not on filedocumented in this encounter Additional Health Concerns Infection Onset Date Last Indicated Resolved Time COVID: Suspected 04/25/2021 04/25/2021 04/25/2021 1:12 AM [employer] COVID: Suspected 05/28/2023 05/28/2023 05/28/2023 4:03 PM [employer] COVID: Suspected 05/28/2023 05/28/2023 05/28/2023 9:29 PM [employer] Varicella/Zoster, contact + airborne Comment:05/29/2023- Per ID consult, rash is not consistent with shingles. Lou Cali R/O dissemination. Please contact IP if dissemination ruled out. 05/29/2023 05/29/2023 05/29/2023 6 :33 PM [employer] Exposure, COVID-19 Comment:Per RN exposed to COVID+ on 05/26/23. No need to test unless symptomatic. Please monitor for symptoms. Negative COVID test does not remove precautions, pt must remain on exposure precautions 10 days post last exposure. Pt's last day of precautions is 06/05/23. 05/29/2023 05/29/2023 3:05 AM [employer] Conjunctivitis 07/06/2023 07/06/2023 07/20/2023 3: 05 AM CDT COVID: Suspected 09/26/2023 09/26/2023 09/26/2023 2:27 PM CDT documented as of this encounter Care Teams Rn Or Lpn Relationship Specialty Start Date End Date Isidro Garza MD PCP - General 07/22/16 Tyshawn Liang MD Consulting Physician Orthopedic Surgery 09/26/19 Cassi Paredes MD Consulting Physician Gastroenterology 05/04/20 Connie Ortega MD [id number] [address] Surgeon Surgical Oncology 03/31/22 documented as of this encounter
== END 2024-09-05 13:52 | disposition home or self-care (01) ==
LOC: ANHIMG 13:53
PROVIDERS: Visit Provider Obstetrics & Gynecology
DX: Z12.31 Encounter for screening mammogram for malignant neoplasm of breast (principal); N63.20 Unspecified lump in the left breast, unspecified quadrant
CPT/HCPCS: 77063; 77067